=== PATIENT | female | born 1970 | race African-American/Black ===

== ENCOUNTER 2021-02-04 07:56 | Day surgery (SDC) | payer BC ==
[2021-02-01 19:37] VITALS: BMI 29.8
[2021-02-04 09:33] VITALS: TEMP 98.2
[2021-02-04 09:58] VITALS: BP 110/58; PULSE 78
== END 2021-02-04 10:00 | disposition home or self-care (01) ==
LOC: FASU-ENDO 07:56
PROVIDERS: ATTEND Internal Medicine Gastroenterology
PROC: 0DJD8ZZ Inspection of Lower Intestinal Tract, Via Natural or Artificial Opening Endoscopic (ICD-10-PCS; principal; 2021-02-04 09:08)
DX: Z12.11 Encounter for screening for malignant neoplasm of colon (principal)
CPT/HCPCS: 84703

== ENCOUNTER 2021-08-12 09:04 | Day surgery (SDC) | payer BC ==
[2021-08-07 13:33] VITALS: BMI 29.8
[2021-08-12 10:57] VITALS: PULSE 79
[2021-08-12 11:09] VITALS: BP 124/68; TEMP 98.1
== END 2021-08-12 11:35 | disposition home or self-care (01) ==
LOC: FASU-ENDO 09:04
PROVIDERS: ATTEND Internal Medicine Gastroenterology
PROC: 0DB68ZX Excision of Stomach, Via Natural or Artificial Opening Endoscopic, Diagnostic (ICD-10-PCS; 2021-08-12)
PROC: 0DB98ZX Excision of Duodenum, Via Natural or Artificial Opening Endoscopic, Diagnostic (ICD-10-PCS; principal; 2021-08-12 10:25)
DX: K29.50 Unspecified chronic gastritis without bleeding (principal); K29.40 Chronic atrophic gastritis without bleeding; K31.7 Polyp of stomach and duodenum; R10.13 Epigastric pain
CPT/HCPCS: 84703; 88305-TC; 88342-TC

== ENCOUNTER 2024-08-29 11:08 | Day surgery (SDC) | payer BC ==
[2024-08-29] MEDS: IRON SUCROSE INJECTION 200 MG in SODIUM CHLORIDE 100 ML IVPB ONE (11:42)
[2024-08-29 12:32] VITALS: BP 115/73; PULSE 75; RESP 16; TEMP 98.6
== END 2024-08-29 12:32 | disposition home or self-care (01) ==
LOC: FINFUSION 11:08 → FM/S 11:08 → FINFUSION 12:32
PROVIDERS: ATTEND Internal Medicine
PROC: 3E033GC Introduction of Other Therapeutic Substance into Peripheral Vein, Percutaneous Approach (ICD-10-PCS; principal; 2024-08-29)
DX: D50.9 Iron deficiency anemia, unspecified (principal)
CPT/HCPCS: 96365; J1756